=== PATIENT | female | born 1980 | race Caucasian/White ===

== ENCOUNTER → 2023-07-14 13:42 | Outpatient (REF) | payer OTHER, SELFPAY | LOC: HWRCS 13:42 | PROVIDERS: ATTENDING PHYSICIAN Internal Medicine Cardiovascular Disease; FAMILY PHYSICIAN Family Medicine | DX: R00.2 Palpitations (principal) | CPT/HCPCS: 93306 ==

== ENCOUNTER → 2023-08-27 09:50 | Outpatient (REF) | payer OTHER, SELFPAY | LOC: RCS 09:50 | PROVIDERS: ATTENDING PHYSICIAN Internal Medicine Cardiovascular Disease; FAMILY PHYSICIAN Family Medicine | DX: R00.0 Tachycardia, unspecified (principal); R06.02 Shortness of breath | CPT/HCPCS: 93017 ==